=== PATIENT | male | born 1945 | race Caucasian/White ===

== ENCOUNTER → 2018-05-16 | Outpatient (CLI) | payer MEDICARE, OTHER ==
[~2018-05-16] MED LIST: ALPR1 PO; ASPI81EC PO; EPOE20I SQ; HYDACE5 PO; LEVSOD75 PO; Percocet 5-3251 EACH PO; RANI150 PO; [UNRECOGNIZED DRUG - OTHER]
[2018-05-16 13:24] LABS: BASOPHILS ABSOLUTE AUTO 0.19 K/mm3 (0.00-0.23); BASOPHILS PERCENT AUTO 4 % (0-2); EOSINOPHILS ABSOLUTE AUTO 0.17 K/mm3 (0.00-0.68); EOSINOPHILS PERCENT AUTO 3 % (0-6); Hematocrit 27.6 % (37.0-53.0); Hemoglobin 8.9 g/dL (13.5-17.5); IMMATURE GRAN ABSOLUTE AUTO 0.03 K/mm3 (0.00-0.10); IMMATURE GRAN PERCENT AUTO 1 % (0-1); LYMPHOCYTES ABSOLUTE AUTO 2.22 K/mm3 (0.84-5.20); LYMPHOCYTES PERCENT AUTO 42 % (21-46); MONOCYTES ABSOLUTE AUTO 0.65 K/mm3 (0.16-1.47); MONOCYTES PERCENT AUTO 12 % (4-13); Mean Corpuscular HGB 33.1 pg (26.0-34.0); Mean Corpuscular HGB Conc 32.2 g/dL (31.5-36.5); Mean Corpuscular Volume 103 fL (80-100); Mean Platelet Volume 9.7 fL (9.1-12.4); NEUTROPHILS ABSOLUTE AUTO 2.08 K/mm3 (1.96-9.15); NEUTROPHILS PERCENT AUTO 39 % (41-73); NRBC ABSOLUTE 0.09 K/mm3 (0.00-0.02); NRBC Auto 1.7 /100 WBC (0.0-0.2); Platelet Count 558 K/mm3 (150-400); RDW Coefficient Variation 31.2 % (11.7-14.2); RDW Standard Deviation 114.4 fL (35.1-46.3); Red Blood Cell Count 2.69 M/mm3 (4.30-5.90); White Blood Cell Count 5.34 K/mm3 (4.00-11.30)
== END | disposition home or self-care (01) ==
LOC: LAB SHORT 09:07 → LAB 09:07
PROVIDERS: Internal Medicine Hematology & Oncology
DX: C94.6 Myelodysplastic disease, not elsewhere classified (principal)
CPT/HCPCS: 85025

== ENCOUNTER → 2018-11-28 | Outpatient (CLI) | payer MEDICARE, OTHER ==
[2018-11-28 12:24] LABS: Alanine Aminotransfer (ALT/SGP 32 U/L (12-78); Albumin/Globulin Ratio 1.5 (0.8-1.8); Alk Phos 74 U/L (50-136); Anion Gap 5 mmol/L (6-16); Aspartate Aminotrans (AST/SGOT 18 U/L (12-37); Blood Urea Nitrogen 18 mg/dL (8-24); Bun/Creatinine Ratio 18.3 (12.0-20.0); CHOL/HDL RATIO 2.3; CO2, Blood 27 mmol/L (21-32); Calcium, Blood 8.6 mg/dL (8.5-10.1); Chloride, Blood 107 mmol/L (98-108); Cholesterol 129 mg/dL (50-200); Creatinine, Blood 0.98 mg/dL (0.60-1.20); Globulin, Blood 2.7 g/dL (2.2-4.0); Glomerular Filtration Rate >60 (60-); Glucose, Blood 101 mg/dL (70-99); HDL Cholesterol 56 mg/dL (>39); LDL/HDL RATIO 1.1; Low Density Lipoprotein Chol 64 mg/dL (0-110); Potassium, Blood 4.7 mmol/L (3.5-5.5); Sodium, Blood 139 mmol/L (136-145); Total Protein, Blood 6.7 g/dL (6.4-8.2); Triglycerides 45 mg/dL (30-160); Very Low Density Lipoprot Chol 9 mg/dL (6-32)
== END | disposition home or self-care (01) ==
LOC: LAB SHORT 10:00 → LAB 10:00
PROVIDERS: Internal Medicine Hematology & Oncology
DX: D47.3 Essential (hemorrhagic) thrombocythemia (principal); D46.9 Myelodysplastic syndrome, unspecified; E03.9 Hypothyroidism, unspecified; Z12.5 Encounter for screening for malignant neoplasm of prostate
CPT/HCPCS: 36415; 80053; 80061; 84439; 84443; G0103

== ENCOUNTER → 2020-09-09 | Outpatient (CLI) | payer MEDICARE, OTHER ==
[2020-09-09 15:01] LABS: Alanine Aminotransfer (ALT/SGP 42 U/L (12-78); Albumin, Blood 4.1 g/dL (3.4-5.0); Albumin/Globulin Ratio 1.5 (0.8-1.8); Alk Phos 76 U/L (50-136); Anion Gap 6 mmol/L (6-16); Aspartate Aminotrans (AST/SGOT 22 U/L (12-37); Bilirubin, Total 0.9 mg/dL (0.1-1.0); Blood Urea Nitrogen 19 mg/dL (8-24); Bun/Creatinine Ratio 16.4 (12.0-20.0); CHOL/HDL RATIO 2.3; CO2, Blood 27 mmol/L (21-32); Calcium, Blood 8.3 mg/dL (8.5-10.1); Chloride, Blood 106 mmol/L (98-108); Cholesterol 136 mg/dL (50-200); Creatinine, Blood 1.16 mg/dL (0.60-1.20); Globulin, Blood 2.8 g/dL (2.2-4.0); Glomerular Filtration Rate >60 (60-); Glucose, Blood 99 mg/dL (70-99); HDL Cholesterol 58 mg/dL (>39); LDL/HDL RATIO 1.2; Low Density Lipoprotein Chol 70 mg/dL (0-110); Phosphorus, Blood 3.3 mg/dL (2.5-4.9); Potassium, Blood 4.7 mmol/L (3.5-5.5); Sodium, Blood 139 mmol/L (136-145); Thyroxine (T4) 8.7 ug/dL (4.5-12.1); Total Protein, Blood 6.9 g/dL (6.4-8.2); Triglycerides 41 mg/dL (30-160); Very Low Density Lipoprot Chol 8 mg/dL (6-32)
== END | disposition home or self-care (01) ==
LOC: LAB 09:30 → LAB SHORT 09:30
PROVIDERS: Internal Medicine Hematology & Oncology
DX: E03.9 Hypothyroidism, unspecified (principal); E78.49 Other hyperlipidemia; D46.9 Myelodysplastic syndrome, unspecified
CPT/HCPCS: 80053; 80061; 84100; 84436; 84443

== ENCOUNTER → 2021-06-09 | Outpatient (CLI) | payer MEDICARE, OTHER ==
[2021-06-09 16:39] LABS: BASOPHILS ABSOLUTE AUTO 0.21 K/mm3 (0.00-0.23); BASOPHILS PERCENT AUTO 4 % (0-2); EOSINOPHILS ABSOLUTE AUTO 0.18 K/mm3 (0.00-0.68); EOSINOPHILS PERCENT AUTO 3 % (0-6); IMMATURE GRAN ABSOLUTE AUTO 0.08 K/mm3 (0.00-0.10); IMMATURE GRAN PERCENT AUTO 2 % (0-1); LYMPHOCYTES ABSOLUTE AUTO 2.08 K/mm3 (0.84-5.20); LYMPHOCYTES PERCENT AUTO 38 % (21-46); MONOCYTES ABSOLUTE AUTO 0.56 K/mm3 (0.16-1.47); MONOCYTES PERCENT AUTO 10 % (4-13); Mean Platelet Volume 10.5 fL (9.1-12.4); NEUTROPHILS ABSOLUTE AUTO 2.39 K/mm3 (1.96-9.15); NEUTROPHILS PERCENT AUTO 43 % (41-73); NRBC ABSOLUTE 0.08 K/mm3 (0.00-0.02); NRBC Auto 1.5 /100 WBC (0.0-0.2); Platelet Count 560 K/mm3 (150-400)
[2021-06-09 17:08] LABS: Hematocrit 32.1 % (37.0-53.0); Mean Corpuscular HGB 30.9 pg (26.0-34.0); Mean Corpuscular HGB Conc 31.2 g/dL (31.5-36.5); Mean Corpuscular Volume 99 fL (80-100); RDW Coefficient Variation 31.6 % (11.7-14.2); RDW Standard Deviation 111.7 fL (35.1-46.3); Red Blood Cell Count 3.24 M/mm3 (4.30-5.90)
== END ==
LOC: LAB SHORT 15:24
PROVIDERS: Internal Medicine Hematology & Oncology
DX: D46.9 Myelodysplastic syndrome, unspecified (principal); D63.8 Anemia in other chronic diseases classified elsewhere
CPT/HCPCS: 85025

== ENCOUNTER 2021-08-15 12:14 | Day surgery (SDC) | payer MEDICARE, OTHER ==
[~2021-08-15] VITALS: Ht 175.3 cm; Wt 83.5 kg
--- NOTE | 2021-08-15 12:57 | NUR ---
08/15/21 1257 Jeana Escalante CALL LIGHT WITHIN REACH.
== END 2021-08-15 14:33 | disposition home or self-care (01) ==
LOC: ORSCSDS 12:14
PROVIDERS: Ophthalmology
PROC: 08RJ3JZ Replacement of Right Lens with Synthetic Substitute, Percutaneous Approach (ICD-10-PCS; principal; 2021-08-15 13:30)
DX: H25.13 Age-related nuclear cataract, bilateral (principal); K21.9 Gastro-esophageal reflux disease without esophagitis; F17.210 Nicotine dependence, cigarettes, uncomplicated; Z79.899 Other long term (current) drug therapy
CPT/HCPCS: J2001; J2250; J3010; J3301; J7040; V2632

== ENCOUNTER 2021-08-31 07:45 | Day surgery (SDC) | payer MEDICARE, OTHER ==
[~2021-08-31] VITALS: Ht 175.3 cm; Wt 82.8 kg
[~2021-08-31 07:45] MED LIST changes: +LEVSOD100 PO; -LEVSOD75 PO
--- NOTE | 2021-08-31 08:04 | NUR ---
08/31/21 0804 Jeana Escalante CALL LIGHT WITHIN REACH. TETRACAINE AT 0800 PLEDGETT AT 0803 IN THE LEFT EYE
== END 2021-08-31 09:26 | disposition home or self-care (01) ==
LOC: ORSCSDS 07:45
PROVIDERS: Ophthalmology
PROC: 08RK3JZ Replacement of Left Lens with Synthetic Substitute, Percutaneous Approach (ICD-10-PCS; principal; 2021-08-31 09:00)
DX: H25.12 Age-related nuclear cataract, left eye (principal); F41.9 Anxiety disorder, unspecified; J44.9 Chronic obstructive pulmonary disease, unspecified; E78.00 Pure hypercholesterolemia, unspecified; F17.210 Nicotine dependence, cigarettes, uncomplicated; Z79.899 Other long term (current) drug therapy
CPT/HCPCS: J2001; J2250; J3010; J3301; J7040; V2632

== ENCOUNTER 2022-02-13 02:50 | Emergency (ER) | payer MEDICARE, OTHER ==
[2022-02-13] MEDS ORDERED: AMOCLA875 PO (05:05)
== END 2022-02-13 05:19 | disposition home or self-care (01) ==
DX: R22.0 Localized swelling, mass and lump, head (principal); T36.4X5A Adverse effect of tetracyclines, initial encounter; R05.9 Cough, unspecified; H00.19 Chalazion unspecified eye, unspecified eyelid; J45.909 Unspecified asthma, uncomplicated; F17.200 Nicotine dependence, unspecified, uncomplicated; Z79.899 Other long term (current) drug therapy

== ENCOUNTER → 2022-04-06 | Outpatient (CLI) | payer MEDICARE, OTHER ==
[~2022-04-06] MED LIST changes: +AMOCLA875 PO
== END | disposition home or self-care (01) ==
LOC: LAB SHORT 08:55
PROVIDERS: Internal Medicine Hematology & Oncology
DX: Z12.5 Encounter for screening for malignant neoplasm of prostate (principal)
CPT/HCPCS: G0103

== ENCOUNTER → 2022-04-27 | Outpatient (CLI) | payer MEDICARE, OTHER ==
[2022-04-27 11:01] LABS: Albumin, Blood 3.8 g/dL (3.4-5.0); Albumin/Globulin Ratio 1.2 (0.8-1.8); Bilirubin, Total 0.9 mg/dL (0.1-1.0); Bun/Creatinine Ratio 16.1 (12.0-20.0); Calcium, Blood 8.5 mg/dL (8.5-10.1); Creatinine, Blood 0.87 mg/dL (0.60-1.20); Globulin, Blood 3.1 g/dL (2.2-4.0); Phosphorus, Blood 3.5 mg/dL (2.5-4.9); Potassium, Blood 5.1 mmol/L (3.5-5.5); Total Protein, Blood 6.9 g/dL (6.4-8.2)
[2022-04-27 17:32] LABS: Hemoglobin 10.5 g/dL (13.5-17.5); Mean Platelet Volume 10.4 fL (9.1-12.4); NRBC ABSOLUTE 0.04 K/mm3 (0.00-0.02); NRBC Auto 0.9 /100 WBC (0.0-0.2); Platelet Count 489 K/mm3 (150-400); White Blood Cell Count 4.69 K/mm3 (4.00-11.30)
[2022-04-27 17:38] LABS: Mean Corpuscular HGB 30.4 pg (26.0-34.0); Mean Corpuscular HGB Conc 32.8 g/dL (31.5-36.5); Mean Corpuscular Volume 93 fL (80-100); RDW Coefficient Variation 30.9 % (11.7-14.2); RDW Standard Deviation 100.5 fL (35.1-46.3); Red Blood Cell Count 3.45 M/mm3 (4.30-5.90)
[2022-04-27 17:45] LABS: Uric Acid, Blood 6.7 mg/dL (3.5-7.2)
[2022-04-27 17:46] LABS: International Normalized Ratio 1.03; Prothrombin Time Results 10.8 Sec (9.7-11.5)
[2022-04-27 18:00] LABS: BAND PERCENT MAN 4 % (0-8); BASOPHILS ABSOLUTE MAN 0.23 K/mm3 (0.00-0.23); BASOPHILS PERCENT MAN 5 % (0-2); EOSINOPHILS PERCENT MAN 0 % (0-6); LYMPHOCYTES % ATYPICAL MANUAL 2 % (0-0); LYMPHOCYTES ABSOLUTE MAN 1.87 K/mm3 (0.84-5.20); LYMPHOCYTES PERCENT MAN 38 % (21-46); MONOCYTES ABSOLUTE MAN 0.37 K/mm3 (0.16-1.47); MONOCYTES PERCENT MAN 8 % (4-13); SEG NEUTROPHILS PERCENT MAN 43 % (41-73); TOTAL CELLS COUNTED 100
[2022-04-28 08:11] LABS: CERULOPLASMIN 18.2 mg/dL (16.0-31.0); IMMUNOGLOBULIN A, QN, SERUM 121 mg/dL (61-437); IMMUNOGLOBULIN G, QN, SERUM 1166 mg/dL (603-1613); IMMUNOGLOBULIN M, QN, SERUM 63 mg/dL (15-143); TRANSFERRIN 178 mg/dL (177-329)
[2022-04-28 09:11] LABS: HEP A AB, IGM Negative (Negative); HEP B SURFACE AB Non Reactive (.)
[2022-04-30 11:08] LABS: HBSAG SCREEN Negative (Negative); HCV AB <0.1 (0.0-0.9); HEP A AB, IGM Negative (Negative); HEP B CORE AB, IGM Negative (Negative)
== END | disposition home or self-care (01) ==
LOC: LAB SHORT 09:20
PROVIDERS: Internal Medicine Hematology & Oncology
DX: C22.9 Malignant neoplasm of liver, not specified as primary or secondary (principal); D46.9 Myelodysplastic syndrome, unspecified; K76.3 Infarction of liver; E53.8 Deficiency of other specified B group vitamins; R27.0 Ataxia, unspecified; R05.9 Cough, unspecified; R68.89 Other general symptoms and signs; R16.0 Hepatomegaly, not elsewhere classified
CPT/HCPCS: 80053; 80074; 82105; 82390; 82607; 82728; 82746; 82977; 83615; 84100; 84550; 85025; 85610; 85651

== ENCOUNTER → 2022-04-30 | Outpatient (CLI) | payer MEDICARE, OTHER | END | disposition home or self-care (01) | LOC: LAB SHORT 09:56 | DX: R27.0 Ataxia, unspecified (principal); R05.9 Cough, unspecified; R68.89 Other general symptoms and signs; D46.9 Myelodysplastic syndrome, unspecified; K76.3 Infarction of liver; E53.8 Deficiency of other specified B group vitamins | CPT/HCPCS: 82103 ==

== ENCOUNTER → 2022-05-25 | Outpatient (CLI) | payer MEDICARE, OTHER ==
[2022-05-25 12:56] LABS: Albumin, Blood 4.1 g/dL (3.4-5.0); Albumin/Globulin Ratio 1.3 (0.8-1.8); Bilirubin, Total 0.8 mg/dL (0.1-1.0); Bun/Creatinine Ratio 19.4 (12.0-20.0); Calcium, Blood 8.8 mg/dL (8.5-10.1); Creatinine, Blood 0.93 mg/dL (0.60-1.20); Globulin, Blood 3.2 g/dL (2.2-4.0); Phosphorus, Blood 3.5 mg/dL (2.5-4.9); Potassium, Blood 4.6 mmol/L (3.5-5.5); Total Protein, Blood 7.3 g/dL (6.4-8.2)
== END | disposition home or self-care (01) ==
LOC: LAB 10:16 → LAB SHORT 10:16
PROVIDERS: Internal Medicine Hematology & Oncology
DX: D46.9 Myelodysplastic syndrome, unspecified (principal)
CPT/HCPCS: 80053; 84100

== ENCOUNTER → 2022-06-22 | Outpatient (CLI) | payer MEDICARE, OTHER ==
[2022-06-22 13:45] LABS: Albumin, Blood 4.1 g/dL (3.4-5.0); Albumin/Globulin Ratio 1.4 (0.8-1.8); Bilirubin, Total 0.8 mg/dL (0.1-1.0); Bun/Creatinine Ratio 17.2 (12.0-20.0); Calcium, Blood 8.9 mg/dL (8.5-10.1); Creatinine, Blood 0.93 mg/dL (0.60-1.20); Phosphorus, Blood 3.1 mg/dL (2.5-4.9); Potassium, Blood 4.5 mmol/L (3.5-5.5); Total Protein, Blood 7.1 g/dL (6.4-8.2)
[2022-06-23 08:10] LABS: COMPLEMENT C3, SERUM 98 mg/dL (82-167); COMPLEMENT C4, SERUM 24 mg/dL (12-38)
[2022-06-25 08:08] LABS: LYME TOTAL ANTIBODY CIA Negative (Negative)
== END | disposition home or self-care (01) ==
LOC: LAB SHORT 12:18
PROVIDERS: Internal Medicine Hematology & Oncology
DX: D46.9 Myelodysplastic syndrome, unspecified (principal); G45.9 Transient cerebral ischemic attack, unspecified; R23.1 Pallor
CPT/HCPCS: 80053; 84100; 86038; 86160; 86618

== ENCOUNTER 2022-07-15 10:14 | Inpatient (IN) | payer OTHER, MEDICARE ==
[~2022-07-15] VITALS: Ht 175.3 cm; Wt 81.2 kg
[2022-07-15 11:03] LABS: Hemoglobin 7.6 g/dL (13.5-17.5); Mean Platelet Volume 10.4 fL (9.1-12.4); NRBC ABSOLUTE 0.08 K/mm3 (0.00-0.02); NRBC Auto 1.4 /100 WBC (0.0-0.2); Platelet Count 482 K/mm3 (150-400)
[2022-07-15 11:07] LABS: Hematocrit 23.9 % (37.0-53.0); Mean Corpuscular HGB Conc 31.8 g/dL (31.5-36.5); Mean Corpuscular Volume 95 fL (80-100); RDW Coefficient Variation 30.9 % (11.7-14.2); RDW Standard Deviation 104.6 fL (35.1-46.3); Red Blood Cell Count 2.53 M/mm3 (4.30-5.90)
[2022-07-15 11:14] LABS: Alanine Aminotransfer (ALT/SGP 37 U/L (12-78); Albumin, Blood 3.6 g/dL (3.4-5.0); Albumin/Globulin Ratio 1.3 (0.8-1.8); Alk Phos 66 U/L (50-136); Anion Gap 6 mmol/L (6-16); Aspartate Aminotrans (AST/SGOT 26 U/L (12-37); Bilirubin, Total 0.9 mg/dL (0.1-1.0); Blood Urea Nitrogen 19 mg/dL (8-24); Bun/Creatinine Ratio 17.8 (12.0-20.0); CO2, Blood 24 mmol/L (21-32); Chloride, Blood 111 mmol/L (98-108); Creatinine, Blood 1.07 mg/dL (0.60-1.20); Ethanol (Alcohol), Blood, Med <3 mg/dL; Globulin, Blood 2.7 g/dL (2.2-4.0); Glomerular Filtration Rate 71 (60-); Glucose, Blood 127 mg/dL (70-99); Magnesium, Blood 1.8 mg/dL (1.6-2.4); Potassium, Blood 3.9 mmol/L (3.5-5.5); Sodium, Blood 141 mmol/L (136-145); Total Protein, Blood 6.3 g/dL (6.4-8.2)
[2022-07-15 11:52] LABS: BAND PERCENT MAN 5 % (0-8); BASOPHILS ABSOLUTE MAN 0.05 K/mm3 (0.00-0.23); BASOPHILS PERCENT MAN 1 % (0-2); EOSINOPHILS ABSOLUTE MAN 0.29 K/mm3 (0.00-0.68); EOSINOPHILS PERCENT MAN 5 % (0-6); LYMPHOCYTES ABSOLUTE MAN 0.58 K/mm3 (0.84-5.20); LYMPHOCYTES PERCENT MAN 10 % (21-46); MONOCYTES ABSOLUTE MAN 0.29 K/mm3 (0.16-1.47); MONOCYTES PERCENT MAN 5 % (4-13); NEUTROPHILS ABSOLUTE MAN 4.58 K/mm3 (1.96-9.15); SEG NEUTROPHILS PERCENT MAN 74 % (41-73); TOTAL CELLS COUNTED 100
[2022-07-15 14:57] VITALS: BP 123/71
--- NOTE | 2022-07-15 15:00 | NUR ---
PT ARRIVED TO THE ROOM AT APPROXIMATELY 1455. PT IN CORROPLAST TRACTION FROM ER. DR. CORTES PRESENT AND PROVIDED ORDER FOR 5LBS BUCKS TRACTION, COROPLAST TRACTION REMOVED AFTER PT WAS MEDICATED FOR PAIN. PT HAS SIGNIFICANT SWELLING TO RIGHT THIGH BUT IT REMAINS SOFT. PEDAL AND TIBIAL PULSES PRESENT AND PALPABLE TO BLE. PT ABLE TO WIGGLE TOES. MORPHINE FOR PAIN.
[2022-07-15] MEDS ORDERED: PLAVIX75 MG PO (16:18)
[2022-07-15 19:41] VITALS: BP 148/80
--- NOTE | 2022-07-15 19:56 | NUR ---
SHIFT SUMMARY PAIN MANAGED MORPHINE AND OXYCODONE SINCE ARRIVAL TO THE ROOM. PLAN FOR SURGERY TOMORROW. PT DOES NOT TOLERATE REPOSITIONING. PT DECLINED DINNER. NO CHANGES TO RLE SWELLING SINCE ADMIT. REPORT GIVEN TO ALEXYS PAN.
[2022-07-16] VITALS (20 sets, daily range): BP systolic 113–161; BP diastolic 54–98
--- NOTE | 2022-07-16 06:36 | NUR ---
PT VSS T/O NIGHT. RIGHT THIGH REMAINS SWOLLEN-NO SIGNIFICANT CHANGES FROM ORIGINAL ASSESSMENT. 5# BUCKS TX IN PLACE. PULSE AND CAP REFILL WNL, PT DENIED N/T. PAIN MGD PER EMAR. PT ONLY ALLPWING MINIMAL REPOSITIONING R/T PAIN. STRAIGHT CATH DONE X1 R/T RETENTION. PT NPO POST MIDNIGHT FOR PLAN FOR OR TODAY. IVF CONT PER ORDERS. PT A/O, IS USING CALL LIGHT FOR ASSISTANCE.
[2022-07-16 06:43] LABS: Hemoglobin 7.7 g/dL (13.5-17.5); Mean Platelet Volume 10.3 fL (9.1-12.4); NRBC ABSOLUTE 0.14 K/mm3 (0.00-0.02); NRBC Auto 1.8 /100 WBC (0.0-0.2); Platelet Count 481 K/mm3 (150-400); White Blood Cell Count 7.69 K/mm3 (4.00-11.30)
[2022-07-16 06:56] LABS: Bun/Creatinine Ratio 17.9 (12.0-20.0); Calcium, Blood 8.3 mg/dL (8.5-10.1); Creatinine, Blood 0.95 mg/dL (0.60-1.20); Potassium, Blood 4.3 mmol/L (3.5-5.5)
[2022-07-16 07:06] LABS: Hematocrit 24.4 % (37.0-53.0); Mean Corpuscular HGB 30.2 pg (26.0-34.0); Mean Corpuscular HGB Conc 31.6 g/dL (31.5-36.5); Mean Corpuscular Volume 96 fL (80-100); RDW Coefficient Variation 31.5 % (11.7-14.2); RDW Standard Deviation 107.3 fL (35.1-46.3); Red Blood Cell Count 2.55 M/mm3 (4.30-5.90)
--- NOTE | 2022-07-16 12:02 | NUR ---
PT TO OR FOR SURGERY
--- NOTE | 2022-07-16 12:30 | NUR ---
INTO [facility] VIA BED. BUCKS TRACTION REMOVED FROM [facility] FOR TRANSPORT. PT REPORTS 6/10 RIGHT LOWER EXTREMITY PAIN AND MODERATE TO SEVERE ANXIETY. PT COOPERATIVE WITH CARE. LUNGS DIMINISHED IN THE BASES. SAT>90% ON R/A. PT HAS OCCASIONAL COUGH PRODUCTIVE OF SMALL AMOUNT OF THICK, STICKY, YELLOW TINGED SPUTUM. PT STATES THAT THIS IS NORMAL SINCE HE QUIT SMOKING. ALSO, PT REPORTS DIFFICULTY SWALLOWING SINCE HIS CVA 04/09. PT REQUEST THAT RN ASK DR. CORTES ABOUT WHETHER OR NOT BLOOD TRANSFUSION TO BE GIVEN. HGN-7.7 PT DAUGHTER TRAVIS AT BEDSIDE-HER CONTACT INFO HAS BEEN PLACED ON THE CHART.
--- NOTE | 2022-07-16 14:33 | NUR ---
07/16/22 1432 Eugene Don I THIS RN NOTED A RASH TO THE RIGHT UPPER CHEST WALL THAT WAS PRESENT ON ARRIVAL TO THE OR. DR. ROWE WAS NOTIFIED. PT STATED THAT THE RASH HAS BEEN PRESENT "FOR ABOUT A YEAR."
--- NOTE | 2022-07-16 17:22 | NUR ---
ARRIVAL TO UNIT PT CAME ON BED FROM PACU. PT ON 3L NC, TOLERATING WELL. 3 INCSIONS TO R HIP WITH AQUACELL DRESSINGS, C/D/I. PULSES STRONG IN R FOOT, ABLE TO WIGGLE TOES. TRYING TO VOID. PT HAVING LOTS OF MUCUS, USING SUCTION TO GET MUCUS OUT. PT REPORTS NO PAIN AT THIS TIME.
--- NOTE | 2022-07-16 18:10 | NUR ---
SHIFT SUMMARY POD 0 R GAMMA NAILING 3 INCISIONS, 2 ON R HIP, 1 ON R KNEE, ALL COVERED WITH AQUALCELL DRESSINGS, C/D/I. PT WENT TO IMAGING AT 1530 CAME BACK AT 1800. TOLERATED MOVING FROM BED TO RNEY WELL. MEDICATED PER EMAR FOR PAIN. PT ON 3L NC.
[2022-07-17 00:53] VITALS: BP 120/76
[2022-07-17 03:58] VITALS: BP 118/73
[2022-07-17 04:07] LABS: Hemoglobin 7.4 g/dL (13.5-17.5); Mean Corpuscular HGB 30.3 pg (26.0-34.0); Mean Corpuscular HGB Conc 32.2 g/dL (31.5-36.5); Mean Corpuscular Volume 94 fL (80-100); Mean Platelet Volume 10.3 fL (9.1-12.4); NRBC ABSOLUTE 0.13 K/mm3 (0.00-0.02); NRBC Auto 2.1 /100 WBC (0.0-0.2); Platelet Count 344 K/mm3 (150-400); RDW Standard Deviation 97.2 fL (35.1-46.3); Red Blood Cell Count 2.44 M/mm3 (4.30-5.90); White Blood Cell Count 6.06 K/mm3 (4.00-11.30)
[2022-07-17 04:22] LABS: Hematocrit 23.1 % (37.0-53.0)
[2022-07-17 07:15] VITALS: BP 123/74
--- NOTE | 2022-07-17 07:33 | NUR ---
POD S/P RIGHT HIP NAILING. PT VSS T/O NIGHT. DRESSING CDI, SWELLING MUCH IMPROVED POST OP. PULSES AND CAP REFILL WNL, PT DENIED N/T. PAIN MGD W/TYLENOL AND MG OXYCODONE W/REP RELIEF. PT TAKES MEDS W/APPLESAUCE, DOES WELL W/APPLESAUCE, BUT REP SWALLOWING DIFFICULTY W/WATER AND OTHER TEXTURES. ST EVAL ORDERED, PT NPO PENDING EVAL. IVF CONT PER ORDERS. PT IS VOIDING URINE W/O DIFFICULTY. PT REPOSITIONING SELF IN BED. PLAN TO MOBILIZE W/PT.
[2022-07-17 15:32] VITALS: BP 103/65
--- NOTE | 2022-07-17 17:22 | NUR ---
SHIFT SUMMARY POD 1 GAMMA NAIL R HIP PT PAIN WELL CONTROLLED TODAY. MEDICATED PER EMAR. HE WORKED WITH THERAPY. AMBULATED IN ROOM, UP TO CHAIR FOR MOST OF SHIFT. CONTINUES TO HAVE DIFFICULTY SWALLOWING, SPEECH THERAPY EVAL TODAY. DR. LILLY CONSTULTED FOR SWALLOWING ISSUES. PT AWARE OF PLAN WITH GI AND AGREEABLE. PLAN IS TO CONTINUE MOBILIZING PATIENT.
[2022-07-17 19:27] VITALS: BP 97/72
[2022-07-18 00:47] VITALS: BP 111/74
[2022-07-18 04:23] LABS: Hematocrit 22.3 % (37.0-53.0); Hemoglobin 7.2 g/dL (13.5-17.5); Mean Corpuscular HGB 30.4 pg (26.0-34.0); Mean Corpuscular HGB Conc 32.3 g/dL (31.5-36.5); Mean Corpuscular Volume 94 fL (80-100); Mean Platelet Volume 11.4 fL (9.1-12.4); NRBC ABSOLUTE 0.11 K/mm3 (0.00-0.02); NRBC Auto 1.7 /100 WBC (0.0-0.2); Platelet Count 297 K/mm3 (150-400); RDW Standard Deviation 98.1 fL (35.1-46.3); Red Blood Cell Count 2.37 M/mm3 (4.30-5.90); White Blood Cell Count 6.43 K/mm3 (4.00-11.30)
--- NOTE | 2022-07-18 04:40 | NUR ---
SHIFT SUMMARY VITALS STABLE, UP TO CHAIR T/O EVENING, 1 ASSIST W/ FWW TO TRANSFER TO BED. PAIN 07/25, MEDICATED X1. SLEPT WELL T/O NIGHT. 02 DECREASED TO 1L NC ON PREVIOUS SHIFT. CONT USE OF SCD'S. NPO FOR BARRIUM SWALLOW TODAY. PLANS FOR ESOPHAGEAL DILATION ON SATURDAY.
[2022-07-18 04:47] VITALS: BP 111/69
--- NOTE | 2022-07-18 06:31 | NUR ---
THIS RN REVIEWED ADN AGREES W/DOCUMENTATION OF BRADLEY TRAN RN.
[2022-07-18 06:52] VITALS: BP 116/68
[2022-07-18 15:12] VITALS: BP 109/63
--- NOTE | 2022-07-18 15:35 | NUR ---
SHIFT SUMMARY: POD 2 RIGHT HIP NAILING PATIENT IS A&OX4. VS ARE WNL AND IS ON RA WHILE AWAKE BUT ON 1L NC WHEN ASLEEP. WHILE ON RA PATIENT IS >90% OXYGEN SATS WITH CONTINUOUS BIOX ON. OTHERWISE VS ARE WNL. PAIN IS MANAGED WITH 2 OXY PO. HIS RIGHT HIP HAS AN AQUACEL THAT IS C/D/I. DENIES NUMBNESS OR TINGLING AND CAN MOVE ALL FINGERS AND TOES WHEN ASKED. HE IS TOLERATING PO INTAKE AND IS VOIDING. PATIENT WAS EDUCATED ON STOOL SOFTENERS AND PATIENT STATED "I WANT TO WAIT UNTIL AFTER MY TEST TO HAVE THEM". PATIENT HAD HIS BARIUM SWALLOW TEST DONE TODAY. PATIENT IS A SBA WITH FWW AND GAIT BELT. HE CALLS APPROPRIATELY. PATIENT WAS SITTING UP IN A CHAIR FOR MOST OF THE SHIFT BUT IS BACK IN BED WITH CALL LIGHT IN REACH. THE PLAN IS TO HAVE AN ESOPHAGEAL DIALATION DONE ON SATURDAY SINCE THAT WILL BE DAY 5 SINCE HAVING PO PLAVIX. THEN AFTER THAT DEPENDING ON PHYSICAL THERAPY'S RECOMMENDATION WILL EITHER DISCHARGE TO A SNF OR HOME WITH HOME HEALTH.
[2022-07-18 16:30] VITALS: BP 119/66
[2022-07-18 19:51] VITALS: BP 115/76
--- NOTE | 2022-07-18 23:34 | NUR ---
REPORT GIVEN TO BOY PAN TO ASSUME CARE OF PT AT THIS TIME. PT RESTING IN BED, DENIES NEEDS.
[2022-07-19] VITALS (8 sets, daily range): BP systolic 105–112; BP diastolic 58–73
--- NOTE | 2022-07-19 01:57 | NUR ---
ASSUMED CARE OF PT 2330.PT WAS SLEEPING.AT 0130 I NOTED PT SLOUCHED DOWN IN BED AND R FOOT WAS SLIGHTLY TURNING IN. I OFFERED TO REPOSITION PT AND ADVISED OF IMPORTANCE KEEPING R FOOT STRAIGHT WITH PILLOW BETWEEN KNEES IF NEEDED.OFFERED ANY OTHER CARE PT NEEDED. REFILLED ICE TO R HIP.PT USING HIS GAIT BELT DOWN LEG WRAPPED AROUND FOOT PAD TO STRAIGHTEN/REPOSITION FOOT.PT REFUSING ALL CARE. STATED HE JUST WANTED TO F"ING SLEEP.STATED HE HAD NOT SLEPT IN "1 WEEK" AFTER ENSURING PT HAD YANKAUER SX IN HAND AND CALL LIGHT IN HAND,URINAL ON TABLE WITHIN REACH. PT APPEARED IN NO PHYSICAL DISTRESS,I ASKED HIM TO CALL FOR ANY NEEDS AND LEFT ROOM.
--- NOTE | 2022-07-19 03:37 | NUR ---
LABS DRAWN.PT AWAKE. COOPERATIVE WITH LAB.
[2022-07-19 03:50] LABS: Hematocrit 20.4 % (37.0-53.0); Hemoglobin 6.5 g/dL (13.5-17.5)
[2022-07-19 05:47] LABS: Bun/Creatinine Ratio 20.3 (12.0-20.0); Calcium, Blood 7.9 mg/dL (8.5-10.1); Creatinine, Blood 0.89 mg/dL (0.60-1.20); Potassium, Blood 3.6 mmol/L (3.5-5.5)
--- NOTE | 2022-07-19 06:09 | NUR ---
PT WITH C/O NEW ONSET BLURRY VISION. REPORTS WEARING READING GLASSES. BUT STATES HAS BEEN ABLE TO SEE TV AND WHITE BOARD CLEARLY UNTIL NOW.PT DID ALLOW ME TO TAKE HIS VS WHICH ARE STABLE.PT WITH PREVIOUS CVA AND R SIDED WEAKNESS WHICH PT REPORTS UNCHANGED FROM PRIOR AND NO CHANGES FROM PT BASELINE PER PT REPORT.PT ALSO THEN C/O L EYE LID BEING "STUCK" CLOSED WHEN HE WOKE.OLGA,NO DISCHARGE NOTED.GAVE PT WARM WASH CLOTH FOR EYES PER HIS REQUEST.ASKED PT IF BLURRY VISION IS IMPROVING, BUT PT ANSWERS "I DONT KNOW".I CALLED OUT TO DR KIM AND ADVISED OF ABOVE. INSTRUCTED ME TO MONITOR WITH NO CHANGE OF ORDERS AT THIS TIME.
--- NOTE | 2022-07-19 07:17 | NUR ---
PT REPORTS NO IMPROVEMENT OR DECLINE IN BLURRY VISION.
--- NOTE | 2022-07-19 16:53 | NUR ---
RECEIVED 1 UNIT OF RBC. PT SITTING UP IN CHAIR POST TRANSFUSION. MEDICATED WITH TYLENOL FOR HEADACHE WITH LESSENING OF HEADACHE. NO CHANGES IN NEURO/NEUROVASCULAR. PT ENRIQUE MECH SOFT DIET AND PILLS WITH APPLESAUCE WITH NO COUGHING OR CHOKING. HIP DRESSING INTACT WITH SCANT DRIED DRAINAGE. PT REPORTS MINIMAL HIP PAIN.
[2022-07-20 04:21] LABS: Hematocrit 23.2 % (37.0-53.0); Hemoglobin 7.6 g/dL (13.5-17.5); Mean Corpuscular HGB 30.6 pg (26.0-34.0); Mean Corpuscular HGB Conc 32.8 g/dL (31.5-36.5); Mean Corpuscular Volume 94 fL (80-100); Mean Platelet Volume 10.7 fL (9.1-12.4); NRBC Auto 2.4 /100 WBC (0.0-0.2); Platelet Count 255 K/mm3 (150-400); RDW Coefficient Variation 26.4 % (11.7-14.2); RDW Standard Deviation 89.9 fL (35.1-46.3); Red Blood Cell Count 2.48 M/mm3 (4.30-5.90); White Blood Cell Count 4.24 K/mm3 (4.00-11.30)
--- NOTE | 2022-07-20 05:03 | NUR ---
SHIFT SUMMARY POD4 RIGHT HIP NAILING. SENSATION AND CIRCULATION REMAINS INTACT. VSS. PT SLEPT ON AND OFF T/O THE NIGHT. TOLLERATING PO INTAKE, PT ENCOURAGED T/O THE NIGHT TO INCREASE ORAL FLUIDS. LOW URINE OUTPUT NOTED. PT C/O CONSTIPATION BUT PASSING FLATTUS, MEDICATED PER EMAR WITH BOWEL CARE. PT WAS ABLE TO TITRATE OFF OF O2 FOR 2 HOURS BUT WHEN HE STARTED LEG EXERCISES IN BED, HE REQUIRED 2L VIA NC. NO ACUTE EVENTS NOTED. PLAN FOR PT TO HAVE ESOPHAGEAL DILATION ON SATURDAY, HOLD LOVENOX THIS DAY. THE PATIENT IS CURRENTLY RESTING, IN NO DISTRESS, CALL LIGHT IN REACH.
[2022-07-20 05:22] VITALS: BP 132/59
--- NOTE | 2022-07-20 07:15 | NUR ---
Patient consent statement. 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
[2022-07-20 07:19] VITALS: BP 105/66
[2022-07-20 14:39] VITALS: BP 97/67
--- NOTE | 2022-07-20 16:00 | NUR ---
PATIENT AND BELONGINGS TRANSPORTED VIA HOSPITAL BED FROM ROOM 213 TO ROOM 229. ORIENTED TO NEW ROOM AND CALL LIGHT WITHIN REACH.
--- NOTE | 2022-07-20 18:38 | NUR ---
END OF SHIFT SUMMARY. MODERATE SEROSANGUINEOUS DRAINAGE PRESENT ON AQUACEL. MEDICATED WITH OXYCODONE X1 FOR 5/10 RIGHT HIP PAIN WITH FAIR RELIEF. PT ON CONTINUOUS BIOX MONITORING AND SATS ABOVE 90% ON 1 L VIA N/C.
[2022-07-20 21:31] VITALS: BP 127/68
[2022-07-21] VITALS (24 sets, daily range): BP systolic 80–141; BP diastolic 46–93
--- NOTE | 2022-07-21 04:58 | NUR ---
SHIFT SUMMARY AOX4. FOLLOWS DIRECTIONS & ANSWERS QUESTIONS. SLOW TO RESPOND @TIMES. HX CVA. POD 5-R GAMMA NAIL PINNING. AQUACEL DRESSING CHANGED / DAY SHIFT, C/D/I. REPORTS 08/25 PAIN & ANXIETY @HS. HOWEVER PT STATED ANXIETY WAS WORSE THEN PAIN & ASKED TO WAIT A FEW HOURS AFTER XANAX BEFORE GIVING PAIN MED & THEN PT DENIED ANY PAIN & STATED HE WAS COMFORTABLE. UP 1 ASSIST c GB & FWW TO RESTROOM, NO BM THIS SHIFT. PASSING GAS. BOWEL CARE MEDS GIVEN. WILL BE NPO AFTER 0600 FOR EGD TODAY. DENIES N/V OR DYSPNEA. CALL LIGHT IN REACH.
[2022-07-21 05:41] LABS: Hematocrit 23.4 % (37.0-53.0); Hemoglobin 7.5 g/dL (13.5-17.5)
--- NOTE | 2022-07-21 12:39 | NUR ---
07/21/22 1239 Kathy Centeno HISTORY, CHART, MEDICATIONS AND ALLERGIES REVIEWED BEFORE START OF PROCEDURE. PATIENT CONFIRMS NPO STATUS AND AGREES WITH SCHEDULED PROCEDURE. 3-LEAD EKG REVIEWED WITH PHYSICIAN PRIOR TO START OF PROCEDURE. MONITOR INTACT WITH CONTINUOUS PULSE OXIMETRY,CAPNOGRAPHY, 3-LEAD EKG, INTERMITTENT BP. SUPPLEMENTAL O2 TO BE TITRATED THROUGHOUT PROCEDURE TO MAINTAIN O2 SATURATION ABOVE 90%. PATIENT DETERMINED TO BE ASA APPROPRIATE FOR PROPOFOL SEDATION PRIOR TO START OF PROCEDURE BY DR. LILLY.
--- NOTE | 2022-07-21 13:38 | NUR ---
UPDATE PT LEFT FOR EGD PROCEDURE AT 1100. PT ARRAIVED BACK TO UNIT AT 1330. PT ABLE TO TRANSFER FROM RLEIVASY TO BED WITH MINIMAL ASST. PT STATES "STILL DIZZY FROM THE DRUGS." PT HAS NO COMPLAINTS OF PAIN AT THIS TIME. PT NOW WORKING WITH PHYSICAL THERAPY.
--- NOTE | 2022-07-21 16:05 | NUR ---
SHIFT SUMMARY POD0 EGD, DIET ADVANCED PER GI, POD5 R GAMMA NAIL, AQUACELL DRESSINGS DRY AND INTACT, PT ABLE TO STAND TRANSFER WHEN HE CAME BACK FROM HIS EGD, HE DID THIS SLOWLY BUT SMOOTHLY WITH NO ISSUES OR COMPLAINTS, HE DID REPORT SOME SORENESS IN HIS R HIP WHILE HE WAS STANDING. NO OTHER EVENTS THIS SHIFT, CALL LIGHT IN REACH.
--- NOTE | 2022-07-21 16:50 | NUR ---
SHIFT SUMMARY POD0 EGD. PT ADVANCED DIET BY GI. TOLERATING WELL. POD5 GAMMA NAILING. AQUACELL IN PLACE, C/D/I. PT ABLE TO TRANSFER WITH LIMITED ASST FROM RNEY TO BED. PT COMPLAINS OF SOME SORENESS IN THE R HIP. PT PASSING GAS BUT NO BOWEL MOVEMENT.
--- NOTE | 2022-07-22 04:01 | NUR ---
SHIFT SUMMARY A/0 X4- POD6 R HIP GAMMA NAILING, AQUACEL IN PLACE. VITAL SIGNS STABLE, MAINTAINED ABOVE 92% ON RA THROUGHOUT SHIFT. VOIDING WELL, USING URINAL INDEPENDENTLY. TOLERATING PO INTAKE. PAIN MANAGED W/ PO PAIN MEDICATIONS PER EMAR. NO ACUTE CHANGES THROUGHOUT SHIFT.
[2022-07-22 05:30] LABS: Hematocrit 24.1 % (37.0-53.0); Hemoglobin 7.7 g/dL (13.5-17.5); Mean Corpuscular HGB 30.3 pg (26.0-34.0); Mean Corpuscular Volume 95 fL (80-100); Mean Platelet Volume 11.1 fL (9.1-12.4); NRBC ABSOLUTE 0.12 K/mm3 (0.00-0.02); NRBC Auto 2.3 /100 WBC (0.0-0.2); Platelet Count 304 K/mm3 (150-400); RDW Coefficient Variation 26.1 % (11.7-14.2); RDW Standard Deviation 88.9 fL (35.1-46.3); Red Blood Cell Count 2.54 M/mm3 (4.30-5.90); White Blood Cell Count 5.17 K/mm3 (4.00-11.30)
[2022-07-22 05:44] VITALS: BP 108/69
[2022-07-22 07:23] VITALS: BP 98/68
--- NOTE | 2022-07-22 16:38 | NUR ---
SHIFT SUMMARY POD 6 GAMMA NAILING R FEMUR POD 1 EGD PT A&O X4, ABLE TO AMBULATE IN ROOM WITH FWW, AND NURSE ASST. AQUACELL DRESSING TO THE HIP CHANGED, C/D/I. INCISION CLOSED WITH GRECIA, NO REDNESS OR SWELLING. SACRAL AND HEEL DRESSING CHANGED, FOR PORECTION. PT DENIES ANY PAIN. DOING EXERCISES IN BED. VSS, CALL LIGHT WITHIN REACH.
[2022-07-22 20:05] VITALS: BP 103/71
[2022-07-23 03:56] LABS: Hematocrit 26.3 % (37.0-53.0); Hemoglobin 8.5 g/dL (13.5-17.5)
[2022-07-23 04:02] VITALS: BP 108/66
[2022-07-23 04:14] LABS: Bun/Creatinine Ratio 17.6 (12.0-20.0); Calcium, Blood 8.4 mg/dL (8.5-10.1); Creatinine, Blood 0.85 mg/dL (0.60-1.20); Potassium, Blood 3.8 mmol/L (3.5-5.5)
--- NOTE | 2022-07-23 04:31 | NUR ---
SHIFT SUMMARY AOX4. POD 7-R FEMUR GAMMA NAIL PINNING. AQUACEL DRSSING CHANGED YESTERDAY ON DAY SHIFT 07/22 DRESSING C/D/I. REPORTS MIN 4-5/10 PAIN IN R HIP, DENIES NEED FOR ANY PAIN MEDS T/O NIGHT WHILE @REST. ABLE TO WIGGLE R FOOT TOES, PULSE STRONG & CAP REFIL <3 SEC. VSS. STILL NO BM SINCE PRIOR TO SURGERY, GAVE STOOL SOFTENERS & BROWN COW DRINK. PT PASSING GAS, DENIES N/V, ACTIVE BT, TOLERATING PO INTAKE. AWAITING DC TO SNF. CALL LIGHT IN REACH, WILL CONT TO MONITOR.
[2022-07-23 07:41] VITALS: BP 112/69
[2022-07-23 12:28] LABS: SARS-Cov-2 (COVID-19) PCR, MMC NEGATIVE (NEGATIVE)
[2022-07-23 15:23] VITALS: BP 107/77
--- NOTE | 2022-07-23 16:02 | NUR ---
DISCHARGE PT DISCHARGED TO [facility] AT APPROX 1600. PT A&OX4, TOLERATING PO, AND VOIDING APPROPRIATELY. PT WORKED WITH OCCUPATIONAL AND PHYSICAL THERAPY THIS AM AND TOLERATED WELL. PT'S PAIN MANAGED WITH OXY PER EMAR. PT'S BELONGINGS RETURNED. PT ESCOURTED OUT IN W/C BY [facility] AND REPORT GIVEN TO [facility].
--- NOTE | 2022-07-23 16:22 | NUR ---
REPORT TO UV REPORT CALLED TO DEMAR PAN AT [facility].
== END 2022-07-23 16:03 | DRG 481 ==
LOC: ER 10:14 → SURS 12:51
PROVIDERS: Internal Medicine; Internal Medicine Gastroenterology; Orthopaedic Surgery; Student in an Organized Health Care Education/Training Program; ADMIT Internal Medicine
PROC: 0QS836Z Reposition Right Femoral Shaft with Intramedullary Internal Fixation Device, Percutaneous Approach (ICD-10-PCS; principal; 2022-07-16 13:30)
PROC: 30233N1 Transfusion of Nonautologous Red Blood Cells into Peripheral Vein, Percutaneous Approach (ICD-10-PCS; 2022-07-19)
PROC: 0DB68ZX Excision of Stomach, Via Natural or Artificial Opening Endoscopic, Diagnostic (ICD-10-PCS; 2022-07-21)
PROC: 0D758ZZ Dilation of Esophagus, Via Natural or Artificial Opening Endoscopic (ICD-10-PCS; 2022-07-21 11:00)
DX: S72.301A Unspecified fracture of shaft of right femur, initial encounter for closed fracture (principal); I69.351 Hemiplegia and hemiparesis following cerebral infarction affecting right dominant side; R13.10 Dysphagia, unspecified; F41.9 Anxiety disorder, unspecified; D46.9 Myelodysplastic syndrome, unspecified; S09.90XA Unspecified injury of head, initial encounter; S01.81XA Laceration without foreign body of other part of head, initial encounter; G47.00 Insomnia, unspecified; N40.0 Benign prostatic hyperplasia without lower urinary tract symptoms; E83.119 Hemochromatosis, unspecified; E78.5 Hyperlipidemia, unspecified; E03.9 Hypothyroidism, unspecified; D63.8 Anemia in other chronic diseases classified elsewhere; Z20.822 Contact with and (suspected) exposure to COVID-19; W01.0XXA Fall on same level from slipping, tripping and stumbling without subsequent striking against object, initial encounter; Z88.1 Allergy status to other antibiotic agents; Z79.899 Other long term (current) drug therapy; Z87.19 Personal history of other diseases of the digestive system; Z87.442 Personal history of urinary calculi; I69.320 Aphasia following cerebral infarction; I69.322 Dysarthria following cerebral infarction; I69.392 Facial weakness following cerebral infarction; Z98.890 Other specified postprocedural states; Z87.891 Personal history of nicotine dependence; Z79.02 Long term (current) use of antithrombotics/antiplatelets
CPT/HCPCS: 12001; 12014; 29505; 36415; 70450; 72125; 73502; 73552; 74230; 80048; 80053; 82728; 83540; 83550; 83735; 85014; 85018; 85025; 85027; 86850; 86900; 86901; 86923; 88305; 88312; 90471; 90714; 92526; 92610; 92611; 93005; 93010; 94760; 94762; 96374-59; 96375-59; 97110; 97116; 97162; 97166; 97530; 97535; 99285-25; A9270; C1713; C1769; G0480; J0690; J1100; J1650; J2250; J2270; J2405; J2704; J3010; J7030; J7050; J7120; P9016; U0004

== ENCOUNTER 2022-11-01 03:42 | Day surgery (SDC) | payer MEDICARE, OTHER ==
[~2022-11-01 03:42] MED LIST changes: +PLAVIX75 MG PO
[2022-11-01 14:02] VITALS: BP 114/76
[2022-11-01 14:21] VITALS: BP 87/50
[2022-11-01 15:34] VITALS: BP 91/67
[2022-11-01 15:52] VITALS: BP 110/54
[2022-11-01 16:58] VITALS: BP 103/71
[2022-11-01 17:29] VITALS: BP 101/75
== END 2022-11-01 23:18 | disposition home or self-care (01) ==
LOC: ATC 03:42 → EDSTATUS 14:00 → ATC 23:18
DX: C94.6 Myelodysplastic disease, not elsewhere classified (principal); F17.200 Nicotine dependence, unspecified, uncomplicated; Z88.8 Allergy status to other drugs, medicaments and biological substances; Z79.82 Long term (current) use of aspirin; Z79.899 Other long term (current) drug therapy
CPT/HCPCS: 36415; 36430; 86850; 86900; 86901; 86923; J7050; P9016

== ENCOUNTER → 2022-11-13 | Outpatient (CLI) | payer MEDICARE, OTHER ==
[2022-11-13 11:26] LABS: BASOPHILS PERCENT AUTO 4 % (0-2); EOSINOPHILS ABSOLUTE AUTO 0.08 K/mm3 (0.00-0.68); EOSINOPHILS PERCENT AUTO 3 % (0-6); Hematocrit 26.7 % (37.0-53.0); Hemoglobin 8.5 g/dL (13.5-17.5); IMMATURE GRAN ABSOLUTE AUTO 0.01 K/mm3 (0.00-0.10); IMMATURE GRAN PERCENT AUTO 0 % (0-1); LYMPHOCYTES ABSOLUTE AUTO 1.35 K/mm3 (0.84-5.20); LYMPHOCYTES PERCENT AUTO 52 % (21-46); MONOCYTES ABSOLUTE AUTO 0.26 K/mm3 (0.16-1.47); MONOCYTES PERCENT AUTO 10 % (4-13); Mean Corpuscular HGB 30.8 pg (26.0-34.0); Mean Corpuscular HGB Conc 31.8 g/dL (31.5-36.5); Mean Corpuscular Volume 97 fL (80-100); Mean Platelet Volume 11.1 fL (9.1-12.4); NEUTROPHILS ABSOLUTE AUTO 0.79 K/mm3 (1.96-9.15); NEUTROPHILS PERCENT AUTO 31 % (41-73); NRBC ABSOLUTE 0.02 K/mm3 (0.00-0.02); NRBC Auto 0.8 /100 WBC (0.0-0.2); Platelet Count 434 K/mm3 (150-400); RDW Coefficient Variation 25.7 % (11.7-14.2); RDW Standard Deviation 89.3 fL (35.1-46.3); Red Blood Cell Count 2.76 M/mm3 (4.30-5.90); White Blood Cell Count 2.59 K/mm3 (4.00-11.30)
== END | disposition home or self-care (01) ==
LOC: LAB SHORT 09:00 → LAB 09:00
PROVIDERS: Internal Medicine Hematology & Oncology
DX: C94.6 Myelodysplastic disease, not elsewhere classified (principal)
CPT/HCPCS: 85025

== ENCOUNTER → 2022-12-04 | Outpatient (CLI) | payer MEDICARE, OTHER ==
[2022-12-05 14:49] LABS: Albumin/Globulin Ratio 1.7 (0.8-1.8); Bilirubin, Total 0.7 mg/dL (0.1-1.0); Bun/Creatinine Ratio 21.5 (12.0-20.0); Calcium, Blood 8.8 mg/dL (8.5-10.1); Creatinine, Blood 0.75 mg/dL (0.60-1.20); Globulin, Blood 2.4 g/dL (2.2-4.0); Phosphorus, Blood 3.8 mg/dL (2.5-4.9); Potassium, Blood 4.2 mmol/L (3.5-5.5); Total Protein, Blood 6.4 g/dL (6.4-8.2)
== END | disposition home or self-care (01) ==
LOC: LAB 09:39 → LAB SHORT 09:39
PROVIDERS: Internal Medicine Hematology & Oncology
DX: D46.9 Myelodysplastic syndrome, unspecified (principal); G45.9 Transient cerebral ischemic attack, unspecified; R23.1 Pallor
CPT/HCPCS: 80053; 84100

== ENCOUNTER 2022-12-25 12:22 | Emergency (ER) | payer MEDICARE, OTHER ==
[~2022-12-25] VITALS: Ht 175.3 cm; Wt 62.6 kg
[2022-12-25 13:12] LABS: Hemoglobin 6.3 g/dL (13.5-17.5); Mean Platelet Volume 11.1 fL (9.1-12.4); Platelet Count 328 K/mm3 (150-400); White Blood Cell Count 1.86 K/mm3 (4.00-11.30)
[2022-12-25 13:21] LABS: Hematocrit 19.3 % (37.0-53.0); Mean Corpuscular HGB 31.5 pg (26.0-34.0); Mean Corpuscular HGB Conc 32.6 g/dL (31.5-36.5); Mean Corpuscular Volume 97 fL (80-100); RDW Coefficient Variation 29.6 % (11.7-14.2); RDW Standard Deviation 105.3 fL (35.1-46.3)
[2022-12-25 13:25] LABS: Albumin, Blood 3.9 g/dL (3.4-5.0); Albumin/Globulin Ratio 1.4 (0.8-1.8); Bilirubin, Total 1.5 mg/dL (0.1-1.0); Bun/Creatinine Ratio 23.6 (12.0-20.0); Calcium, Blood 8.7 mg/dL (8.5-10.1); Creatinine, Blood 0.85 mg/dL (0.60-1.20); Globulin, Blood 2.7 g/dL (2.2-4.0); Total Protein, Blood 6.6 g/dL (6.4-8.2)
[2022-12-25 13:49] LABS: BASOPHILS ABSOLUTE MAN 0.01 K/mm3 (0.00-0.23); BASOPHILS PERCENT MAN 1 % (0-2); EOSINOPHILS ABSOLUTE MAN 0.01 K/mm3 (0.00-0.68); EOSINOPHILS PERCENT MAN 1 % (0-6); LYMPHOCYTES PERCENT MAN 22 % (21-46); MONOCYTES ABSOLUTE MAN 0.13 K/mm3 (0.16-1.47); MONOCYTES PERCENT MAN 7 % (4-13); NEUTROPHILS ABSOLUTE MAN 1.28 K/mm3 (1.96-9.15); SEG NEUTROPHILS PERCENT MAN 69 % (41-73); TOTAL CELLS COUNTED 100
[2022-12-25 18:15] VITALS: BP 98/60
== END 2022-12-25 18:32 | disposition home or self-care (01) ==
LOC: ER 12:22
PROVIDERS: Emergency Medicine
DX: D64.9 Anemia, unspecified (principal); D70.9 Neutropenia, unspecified; F17.200 Nicotine dependence, unspecified, uncomplicated; Z88.8 Allergy status to other drugs, medicaments and biological substances; Z79.890 Hormone replacement therapy; Z85.6 Personal history of leukemia
CPT/HCPCS: 36430; 80053; 84100; 85025; 86850; 86900; 86901; 86923; 96360; 96361; 99283-25; J7030; P9016

== ENCOUNTER → 2023-01-01 | Outpatient (CLI) | payer MEDICARE, OTHER ==
[2023-01-01 14:37] LABS: Albumin, Blood 4.2 g/dL (3.4-5.0); Albumin/Globulin Ratio 1.6 (0.8-1.8); Bilirubin, Total 1.2 mg/dL (0.1-1.0); Bun/Creatinine Ratio 22.4 (12.0-20.0); Calcium, Blood 8.8 mg/dL (8.5-10.1); Creatinine, Blood 0.8 mg/dL (0.60-1.20); Globulin, Blood 2.7 g/dL (2.2-4.0); Potassium, Blood 4.6 mmol/L (3.5-5.5); Total Protein, Blood 6.9 g/dL (6.4-8.2)
== END ==
LOC: LAB SHORT 13:30 → LAB 13:30
PROVIDERS: Internal Medicine Hematology & Oncology
DX: D46.9 Myelodysplastic syndrome, unspecified (principal)
CPT/HCPCS: 80053

== ENCOUNTER → 2023-01-08 | Outpatient (CLI) | payer MEDICARE, OTHER ==
[2023-01-08 17:15] LABS: Albumin, Blood 3.8 g/dL (3.4-5.0); Albumin/Globulin Ratio 1.4 (0.8-1.8); Bilirubin, Total 0.8 mg/dL (0.1-1.0); Bun/Creatinine Ratio 17.8 (12.0-20.0); Calcium, Blood 8.6 mg/dL (8.5-10.1); Creatinine, Blood 0.73 mg/dL (0.60-1.20); Globulin, Blood 2.7 g/dL (2.2-4.0); Phosphorus, Blood 3.1 mg/dL (2.5-4.9); Potassium, Blood 4.3 mmol/L (3.5-5.5); Total Protein, Blood 6.5 g/dL (6.4-8.2)
== END | disposition home or self-care (01) ==
LOC: LAB 10:20 → LAB SHORT 10:20
PROVIDERS: Internal Medicine Hematology & Oncology
DX: D46.9 Myelodysplastic syndrome, unspecified (principal)
CPT/HCPCS: 80053; 84100

== ENCOUNTER 2023-01-09 02:17 | Day surgery (SDC) | payer MEDICARE, OTHER ==
[2023-01-09] VITALS (7 sets, daily range): BP systolic 84–95; BP diastolic 40–55
--- NOTE | 2023-01-09 15:34 | NUR ---
CALLED DR OAKES'S OFFICE TO INFORM THEM OF PATIENTS BLOOD PRESSURE, 'S OFFICE IS CURRENTLY CLOSED. WILL CONTINUE TO MONITOR. MAY NEED TO SEND PT TO THE ER IF BP DOES NOT RISE AFTER 2ND UNIT OF PRBC'S
--- NOTE | 2023-01-09 17:39 | NUR ---
PT ASYMPTOMATIC WITH LOW BP. PT RUNS LOW NORMALLY STATES FAMILY MEMBER THAT ARRIVED FOR PICK-UP TRANSPORTATION. PT ABLE TO AMBULATE STEADY WITH WALKER TO THE BATHROOM WITHOUT INCIDENT. REVIEWED LOW BP SYMPTOMS, SITTING AND STANDING SLOWLY, AND GOING TO ER IF PT BECOMES SYMPTOMATIC. FAMILY AND PT VERBALIZED UNDERSTANDING. PT ESCORTED VIA W/C TO PRIVATE CAR WITH BELONGINGS. PT D/C ASYMPTOMATIC WITH LOW BP
== END 2023-01-09 17:32 | disposition home or self-care (01) ==
LOC: ATC 02:17
DX: D46.9 Myelodysplastic syndrome, unspecified (principal); Z86.73 Personal history of transient ischemic attack (TIA), and cerebral infarction without residual deficits; R23.1 Pallor
CPT/HCPCS: 36415; 36430; 86850; 86900; 86901; 86923; J7050; P9016

== ENCOUNTER 2023-01-24 04:57 | Day surgery (SDC) | payer MEDICARE, OTHER ==
[2023-01-24] VITALS (7 sets, daily range): BP systolic 81–105; BP diastolic 49–69
== END 2023-01-24 11:30 | disposition home or self-care (01) ==
LOC: ATC 04:57
DX: D46.9 Myelodysplastic syndrome, unspecified (principal); K21.9 Gastro-esophageal reflux disease without esophagitis; E03.9 Hypothyroidism, unspecified; J44.9 Chronic obstructive pulmonary disease, unspecified; E78.49 Other hyperlipidemia; Z79.890 Hormone replacement therapy; Z79.82 Long term (current) use of aspirin; Z79.899 Other long term (current) drug therapy
CPT/HCPCS: 36415; 36430; 86850; 86900; 86901; 86923; J7050; P9016

== ENCOUNTER 2023-02-04 11:51 | Day surgery (SDC) | payer MEDICARE, OTHER ==
[2023-02-04 14:14] VITALS: BP 98/60
[2023-02-04 14:32] VITALS: BP 81/45
[2023-02-04 15:33] VITALS: BP 86/61
[2023-02-04 16:02] VITALS: BP 87/51
[2023-02-04 16:23] VITALS: BP 85/48
[2023-02-04 17:53] VITALS: BP 96/50
== END 2023-02-04 17:45 | disposition home or self-care (01) ==
LOC: ATC 11:51 → EDSTATUS 11:52 → ATC 17:45
DX: D46.9 Myelodysplastic syndrome, unspecified (principal); E03.9 Hypothyroidism, unspecified; Z87.891 Personal history of nicotine dependence
CPT/HCPCS: 36415; 36430; 86850; 86900; 86901; 86923; J7050; P9016

== ENCOUNTER 2023-02-19 08:19 | Day surgery (SDC) | payer MEDICARE, OTHER ==
[2023-02-18 13:19] LABS: Hematocrit 25.9 % (37.0-53.0); Hemoglobin 7.9 g/dL (13.5-17.5); Mean Corpuscular HGB Conc 30.5 g/dL (31.5-36.5); Mean Corpuscular Volume 99 fL (80-100); Mean Platelet Volume 11.9 fL (9.1-12.4); Platelet Count 271 K/mm3 (150-400); RDW Coefficient Variation 18.7 % (11.7-14.2); RDW Standard Deviation 60.8 fL (35.1-46.3); Red Blood Cell Count 2.63 M/mm3 (4.30-5.90); White Blood Cell Count 3.29 K/mm3 (4.00-11.30)
[2023-02-18 14:26] LABS: BAND PERCENT MAN 19 % (0-8); BASOPHILS ABSOLUTE MAN 0.03 K/mm3 (0.00-0.23); BASOPHILS PERCENT MAN 1 % (0-2); EOSINOPHILS PERCENT MAN 0 % (0-6); LYMPHOCYTES ABSOLUTE MAN 1.25 K/mm3 (0.84-5.20); LYMPHOCYTES PERCENT MAN 38 % (21-46); MONOCYTES ABSOLUTE MAN 0.09 K/mm3 (0.16-1.47); MONOCYTES PERCENT MAN 3 % (4-13); MYELOCYTE ABSOLUTE MAN 0.03 K/mm3 (0.00-0.00); MYELOCYTE PERCENT MAN 1 % (0-0); NEUTROPHILS ABSOLUTE MAN 1.84 K/mm3 (1.96-9.15); SEG NEUTROPHILS PERCENT MAN 37 % (41-73); TOTAL CELLS COUNTED 100
[2023-02-18 14:27] LABS: OTHER CELL PERCENT MAN 1 % (0-0)
[2023-02-19 14:05] VITALS: BP 110/47
[2023-02-19 14:25] VITALS: BP 146/59
[2023-02-19 15:27] VITALS: BP 90/48
[2023-02-19 15:45] VITALS: BP 108/52
[2023-02-19 16:04] VITALS: BP 95/44
[2023-02-19 17:03] VITALS: BP 98/44
== END 2023-02-19 17:37 | disposition home or self-care (01) ==
LOC: ATC 08:19 → EDSTATUS 08:20 → ATC 17:37
PROVIDERS: Internal Medicine Hematology & Oncology
DX: D46.9 Myelodysplastic syndrome, unspecified (principal); K21.9 Gastro-esophageal reflux disease without esophagitis; E03.9 Hypothyroidism, unspecified; E78.49 Other hyperlipidemia; J44.9 Chronic obstructive pulmonary disease, unspecified; Z87.891 Personal history of nicotine dependence; Z79.01 Long term (current) use of anticoagulants; Z79.890 Hormone replacement therapy; Z79.899 Other long term (current) drug therapy
CPT/HCPCS: 36415; 36430; 85025; 86850; 86900; 86901; 86923; J7050; P9016

== ENCOUNTER 2023-02-28 08:55 | Inpatient (IN) | payer MEDICARE, OTHER ==
[~2023-02-28] VITALS: Ht 175.3 cm; Wt 59.7 kg
[2023-02-28 09:34] LABS: Hematocrit 28.5 % (37.0-53.0); Hemoglobin 8.8 g/dL (13.5-17.5); Mean Corpuscular HGB 29.8 pg (26.0-34.0); Mean Corpuscular HGB Conc 30.9 g/dL (31.5-36.5); Mean Corpuscular Volume 97 fL (80-100); Mean Platelet Volume 12.4 fL (9.1-12.4); Platelet Count 279 K/mm3 (150-400); RDW Coefficient Variation 17.2 % (11.7-14.2); RDW Standard Deviation 57.1 fL (35.1-46.3); Red Blood Cell Count 2.95 M/mm3 (4.30-5.90)
[2023-02-28 09:36] LABS: White Blood Cell Count 5.51 K/mm3 (4.00-11.30)
[2023-02-28 10:01] LABS: Albumin, Blood 3.6 g/dL (3.4-5.0); Bilirubin, Total 0.8 mg/dL (0.1-1.0); Bun/Creatinine Ratio 29.8 (12.0-20.0); Calcium, Blood 8.9 mg/dL (8.5-10.1); Creatinine, Blood 0.64 mg/dL (0.60-1.20); Globulin, Blood 3.7 g/dL (2.2-4.0); Magnesium, Blood 2.2 mg/dL (1.6-2.4); Total Protein, Blood 7.3 g/dL (6.4-8.2)
[2023-02-28 10:12] LABS: BAND PERCENT MAN 8 % (0-8); BASOPHILS ABSOLUTE MAN 0.11 K/mm3 (0.00-0.23); BASOPHILS PERCENT MAN 2 % (0-2); EOSINOPHILS ABSOLUTE MAN 0.05 K/mm3 (0.00-0.68); EOSINOPHILS PERCENT MAN 1 % (0-6); LYMPHOCYTES ABSOLUTE MAN 0.88 K/mm3 (0.84-5.20); LYMPHOCYTES PERCENT MAN 16 % (21-46); MONOCYTES ABSOLUTE MAN 0.27 K/mm3 (0.16-1.47); MONOCYTES PERCENT MAN 5 % (4-13); NEUTROPHILS ABSOLUTE MAN 4.18 K/mm3 (1.96-9.15); SEG NEUTROPHILS PERCENT MAN 68 % (41-73); TOTAL CELLS COUNTED 100
[2023-02-28 14:03] LABS: Source, Urine Clean Catch
[2023-02-28 14:09] LABS: Appearance, Urine Clear (Clear); Bilirubin, Urine Neg (Neg); Blood, Urine Neg (Neg); Color, Urine Amber (P-Yellow); Glucose Qualitative, Urine Neg (Neg); Ketones, Urine Neg (Neg); Leukocyte Esterase, Urine 1+ (Neg); Nitrite, Urine Neg (Neg); Protein, Urine 1+ (Neg); Specific Gravity, Urine 1.025 (1.003-1.022); Urobilinogen, Urine NORM (Normal)
[2023-02-28 14:23] LABS: Calcium Oxalate Crystals Few /hpf
[2023-02-28 14:24] LABS: Bacteria Few /hpf; Mucus Light (0-Heavy); Red Blood Cells, Urine 0-2 /hpf (0-2); Squamous Epithelial Cells Not Seen /hpf (Few)
[2023-02-28 14:31] LABS: Adenovirus Not Detected (NOT DETECT); Bordetella pertussis Not Detected (NOT DETECT); Chlamydophila pneumoniae Not Detected (NOT DETECT); Coronavirus 229E Not Detected (NOT DETECT); Coronavirus HKU1 Not Detected (NOT DETECT); Coronavirus NL63 Not Detected (NOT DETECT); Coronavirus OC43 Not Detected (NOT DETECT); Human Metapneumovirus Not Detected (NOT DETECT); Human Rhinovirus/Enterovirus Not Detected (NOT DETECT); Influenza A/2009-H1 Not Detected (NOT DETECT); Influenza A/H1 Not Detected (NOT DETECT); Influenza A/H3 Not Detected (NOT DETECT); Influenza B Not Detected (NOT DETECT); Mycoplasma pneumoniae Not Detected (NOT DETECT); Parainfluenza Virus 1 Not Detected (NOT DETECT); Parainfluenza Virus 2 Not Detected (NOT DETECT); Parainfluenza Virus 3 Not Detected (NOT DETECT); Parainfluenza Virus 4 Not Detected (NOT DETECT); Respiratory Syncytial Virus Not Detected (NOT DETECT); SARS-Cov-2 (COVID-19), BioFire Not Detected (NOT DETECT)
[2023-02-28 18:35] VITALS: BP 103/47
[2023-02-28] MEDS ORDERED: MIRALAX17 GM PO (18:38)
[2023-02-28] MEDS ORDERED: DULCOLAX400 MG/5 M PO (18:38)
[2023-02-28] MEDS ORDERED: [UNRECOGNIZED DRUG - OTHER] PR (18:39)
[2023-02-28 20:45] VITALS: BP 91/51
[2023-02-28 22:56] VITALS: BP 93/56
[2023-02-28 23:49] VITALS: BP 89/59
[2023-03-01 01:00] VITALS: BP 112/81
[2023-03-01 03:43] VITALS: BP 98/64
--- NOTE | 2023-03-01 04:29 | NUR ---
SHIFT SUMMARY. PT HAS BEEN DOING WELL THIS SHIFT. AOX4, PLEASANT, COOPERATIVE WITH CARE. VERY SLURRED SPEECH, AT TIMES IS VERY DIFFICULT TO UNDERSTAND WHAT HE IS SAYING. HAS BEEN AT BEDSIDE THROUGHOUT MOST OF SHIFT AND IS BETTER ABLE TO DISCERN WHAT PT IS TRYING TO COMMUNICATE AT TIMES. NO PAIN REPORTED THIS SHIFT. NO REPORTED CHEST PAIN/PRESSURE, DIZZINESS, VERTIGO, N/V. BP HAS BEEN SOFT THROUGHOUT SHIFT. SPOKE WITH DR. SAWYER EARLY IN SHIFT WHO ORDERED NS @ 100. FLUIDS INFUSING SINCE WITHOUT DIFFICULTY. MONITORING BLOOD PRESSURE AND WILL UPDATE RESIDENT SHOULD BP RUN LOW. CONTINENT, CALLS APPROPRIATELY FOR ASSISTANCE. HAS BEEN SATTING WELL ON ROOM AIR THROUGHOUT SHIFT. DRESSING ON LUE REMAINS C/D/I, CHANGED LATE IN DAY SHIFT YESTERDAY PER REPORT. STRICT NPO PENDING SWALLOW EVAL TODAY ON DAY SHIFT. 1-2 PERSON ASSIST TO BSC WITH FWW. BED LOCKED IN LOWEST POSITION. CALL LIGHT LEFT WITHIN REACH. CONTINUING TO MONITOR.
[2023-03-01 04:49] LABS: Hematocrit 23.1 % (37.0-53.0); Hemoglobin 7.1 g/dL (13.5-17.5); Mean Corpuscular HGB 29.7 pg (26.0-34.0); Mean Corpuscular HGB Conc 30.7 g/dL (31.5-36.5); Mean Corpuscular Volume 97 fL (80-100); Platelet Count 242 K/mm3 (150-400); RDW Coefficient Variation 17.2 % (11.7-14.2); Red Blood Cell Count 2.39 M/mm3 (4.30-5.90)
[2023-03-01 05:08] LABS: Albumin, Blood 2.9 g/dL (3.4-5.0); Bilirubin, Total 0.7 mg/dL (0.1-1.0); Bun/Creatinine Ratio 20.2 (12.0-20.0); Calcium, Blood 8.3 mg/dL (8.5-10.1); Creatinine, Blood 0.6 mg/dL (0.60-1.20); Globulin, Blood 2.9 g/dL (2.2-4.0); Phosphorus, Blood 2.6 mg/dL (2.5-4.9); Potassium, Blood 3.7 mmol/L (3.5-5.5); Total Protein, Blood 5.8 g/dL (6.4-8.2)
[2023-03-01 05:22] LABS: White Blood Cell Count 4.08 K/mm3 (4.00-11.30)
[2023-03-01 06:10] LABS: BAND PERCENT MAN 10 % (0-8); BASOPHILS PERCENT MAN 0 % (0-2); EOSINOPHILS PERCENT MAN 0 % (0-6); LYMPHOCYTES ABSOLUTE MAN 1.02 K/mm3 (0.84-5.20); LYMPHOCYTES PERCENT MAN 25 % (21-46); MONOCYTES ABSOLUTE MAN 0.12 K/mm3 (0.16-1.47); MONOCYTES PERCENT MAN 3 % (4-13); NEUTROPHILS ABSOLUTE MAN 2.93 K/mm3 (1.96-9.15); SEG NEUTROPHILS PERCENT MAN 62 % (41-73); TOTAL CELLS COUNTED 100
[2023-03-01 09:17] VITALS: BP 101/72
--- NOTE | 2023-03-01 09:40 | NUR ---
PT TO IMMAGING FOR MRI AT APROX 2722
--- NOTE | 2023-03-01 11:44 | NUR ---
PT REQUESTING HIS DAILY DOSE OF PREDNISONE. PT STATES HE WAS STARTED ON IT THIS SATURDAY THE . DR DORAN NOTIFIED, ORDER FOR 10MG PREDNISONE DAILY TO START TODAY.
[2023-03-01 14:00] VITALS: BP 96/65
[2023-03-01 16:15] VITALS: BP 103/70
--- NOTE | 2023-03-01 18:42 | NUR ---
SHIFT SUMMARY PT HAS DONE WELL T/O SHIFT. MRI DONE THIS SHIFT. PT AMBULATED WITH THERAPY USING FWW. UP TO CHAIR. SPEECH THERAPY EVAL DONE-MEDS TO BE GIVEN WHOLE IN APPLESAUCE. ALL MEALS GIVEN WITH PT SITTING AT AT LEAST 90 DEGREES AND UP FOR AT LEAST 30-60 MIN FOLLOWING ALL MEALS. PT TOLERATED REGULAR DIET. VOIDING SMALL AMOUNTS CONSISTENTLY T/O SHIFT USING URINAL. DIFFICULT TO UNDERSTAND AT TIMES TO SLURRED SPEECH, BUT ABLE TO MAKE NEEDS KNOW. SALINE LOCKED OTHER THAN FOR IV ABX.
[2023-03-01 19:58] VITALS: BP 103/67
[2023-03-02 01:05] VITALS: BP 102/73
[2023-03-02 04:32] VITALS: BP 124/72
[2023-03-02 05:16] LABS: Hematocrit 26.9 % (37.0-53.0); Hemoglobin 8.4 g/dL (13.5-17.5); Mean Corpuscular HGB 29.8 pg (26.0-34.0); Mean Corpuscular HGB Conc 31.2 g/dL (31.5-36.5); Mean Corpuscular Volume 95 fL (80-100); Mean Platelet Volume 11.8 fL (9.1-12.4); NRBC ABSOLUTE 0.02 K/mm3 (0.00-0.02); NRBC Auto 0.5 /100 WBC (0.0-0.2); Platelet Count 271 K/mm3 (150-400); RDW Coefficient Variation 17.2 % (11.7-14.2); RDW Standard Deviation 55.9 fL (35.1-46.3); Red Blood Cell Count 2.82 M/mm3 (4.30-5.90)
--- NOTE | 2023-03-02 05:28 | NUR ---
SHIFT SUMMARY. PT HAS BEEN DOING WELL THROUGHOUT THIS SHIFT. NO ACUTE CHANGES. AOX4, PLEASANT, COOPERATIVE WITH CARE. CONTINUES TO HAVE VERY SLURRED SPEECH, FREQUENTLY DIFFICULT TO UNDERSTAND. HAS BEEN ABLE TO SLEEP THROUGH MOST OF SHIFT SINCE PO XANAX ADMINISTRATION LATE LAST NIGHT. NO PAIN REPORTED. L ARM DRESSING REMAINS C/D/I, CHANGED ON DAY SHIFT YESTERDAY PER REPORT. PT CALLS APPROPRIATELY. INDEPENDENT WITH URINAL. BP HAS BEEN SOFT BUT STABLE, REMAINED HIGHER THROUGHOUT SHIFT THAN PREVIOUS SHIFT WITH THIS NURSE. BED LOCKED IN LOWEST POSITION. CALL LIGHT LEFT WITHIN REACH.
[2023-03-02 05:39] LABS: BAND PERCENT MAN 7 % (0-8); BASOPHILS ABSOLUTE MAN 0.04 K/mm3 (0.00-0.23); BASOPHILS PERCENT MAN 1 % (0-2); EOSINOPHILS PERCENT MAN 0 % (0-6); LYMPHOCYTES ABSOLUTE MAN 0.96 K/mm3 (0.84-5.20); LYMPHOCYTES PERCENT MAN 23 % (21-46); MONOCYTES ABSOLUTE MAN 0.29 K/mm3 (0.16-1.47); MONOCYTES PERCENT MAN 7 % (4-13); NEUTROPHILS ABSOLUTE MAN 2.89 K/mm3 (1.96-9.15); SEG NEUTROPHILS PERCENT MAN 62 % (41-73); TOTAL CELLS COUNTED 100
[2023-03-02 06:05] LABS: Anion Gap 3 mmol/L (6-16); Blood Urea Nitrogen 16 mg/dL (8-24); Bun/Creatinine Ratio 23.9 (12.0-20.0); CO2, Blood 31 mmol/L (21-32); Calcium, Blood 8.5 mg/dL (8.5-10.1); Chloride, Blood 108 mmol/L (98-108); Creatinine, Blood 0.67 mg/dL (0.60-1.20); Glomerular Filtration Rate 96 (60-); Glucose, Blood 98 mg/dL (70-99); Phosphorus, Blood 2.8 mg/dL (2.5-4.9); Potassium, Blood 3.9 mmol/L (3.5-5.5); Sodium, Blood 142 mmol/L (136-145)
[2023-03-02 09:51] VITALS: BP 98/67
[2023-03-02] MEDS ORDERED: PANT40 PO (11:01)
[2023-03-02] MEDS ORDERED: Prednisone10 MG PO (11:02)
[2023-03-02] MEDS ORDERED: AZIT500 PO (11:03)
[2023-03-02] MEDS ORDERED: AMOX875 PO (11:03)
--- NOTE | 2023-03-02 12:17 | NUR ---
PATIENT DISCHARGED VIA PRIVATE VEHICLE,FAMILY MEMBER IN ROOM AND AKNOWLEDGES INSTRUCTIONS. ALL BELONGNGS WITH PATIENT IN BAG, AND IV TAKEN OUT WITH NO COMPLICATIONS.
== END 2023-03-02 11:45 | disposition home or self-care (01) | DRG 689 ==
LOC: ER 08:55 → PCU 15:44
PROVIDERS: Physician Assistant; Student in an Organized Health Care Education/Training Program; ADMIT Family Medicine
DX: N39.0 Urinary tract infection, site not specified (principal); J18.9 Pneumonia, unspecified organism; Z68.1 Body mass index [BMI] 19.9 or less, adult; R13.10 Dysphagia, unspecified; D46.9 Myelodysplastic syndrome, unspecified; R62.7 Adult failure to thrive; F41.9 Anxiety disorder, unspecified; E86.0 Dehydration; Z66 Do not resuscitate; E03.9 Hypothyroidism, unspecified; I69.320 Aphasia following cerebral infarction; I69.322 Dysarthria following cerebral infarction; I69.398 Other sequelae of cerebral infarction; M21.371 Foot drop, right foot; Z79.890 Hormone replacement therapy
CPT/HCPCS: 0202U; 36415; 51798; 70450; 70551; 71046; 80053; 80069; 81001; 83605; 83735; 83880; 84100; 84145; 84484; 85025; 87040; 87086; 92610; 93005; 93010; 94644; 94664; 96361; 96374; 96375; 97110; 97112; 97116; 97161; 97165; 97530; 99285-25; A9270; J0456; J0696; J1650; J2060; J7030; J7050; J7512

== ENCOUNTER 2023-03-06 00:41 | Day surgery (SDC) | payer MEDICARE, OTHER ==
[2023-03-06] VITALS (7 sets, daily range): BP systolic 99–122; BP diastolic 58–88
[~2023-03-06 00:41] MED LIST changes: +AMOX875 PO; +AZIT500 PO; +DULCOLAX400 MG/5 M PO; +MIRALAX17 GM PO; +PANT40 PO; +Prednisone10 MG PO; +[UNRECOGNIZED DRUG - OTHER] PR
== END 2023-03-06 17:25 | disposition home or self-care (01) ==
LOC: ATC 00:41
DX: D46.9 Myelodysplastic syndrome, unspecified (principal); E03.9 Hypothyroidism, unspecified; J44.9 Chronic obstructive pulmonary disease, unspecified; E78.2 Mixed hyperlipidemia; K21.9 Gastro-esophageal reflux disease without esophagitis; D63.8 Anemia in other chronic diseases classified elsewhere; Z87.891 Personal history of nicotine dependence; Z88.8 Allergy status to other drugs, medicaments and biological substances; Z79.82 Long term (current) use of aspirin; Z79.890 Hormone replacement therapy; Z79.899 Other long term (current) drug therapy
CPT/HCPCS: 36415; 36430; 86850; 86900; 86901; 86923; J7050; P9016

== ENCOUNTER 2023-03-26 06:55 | Observation (INO) | payer MEDICARE, OTHER ==
[~2023-03-26] VITALS: Ht 177.8 cm; Wt 52.5 kg
[2023-03-26 07:43] LABS: Hematocrit 24.4 % (37.0-53.0); Hemoglobin 7.4 g/dL (13.5-17.5); Mean Corpuscular HGB 27.9 pg (26.0-34.0); Mean Corpuscular HGB Conc 30.3 g/dL (31.5-36.5); Mean Corpuscular Volume 92 fL (80-100); Platelet Count 258 K/mm3 (150-400); RDW Coefficient Variation 19.5 % (11.7-14.2); RDW Standard Deviation 60.7 fL (35.1-46.3); Red Blood Cell Count 2.65 M/mm3 (4.30-5.90)
[2023-03-26 08:12] LABS: Albumin, Blood 3.7 g/dL (3.4-5.0); Albumin/Globulin Ratio 1.1 (0.8-1.8); Bilirubin, Total 0.9 mg/dL (0.1-1.0); Bun/Creatinine Ratio 44.5 (12.0-20.0); Calcium, Blood 9.3 mg/dL (8.5-10.1); Creatinine, Blood 0.7 mg/dL (0.60-1.20); Globulin, Blood 3.4 g/dL (2.2-4.0); Magnesium, Blood 2.3 mg/dL (1.6-2.4); Potassium, Blood 3.9 mmol/L (3.5-5.5); Thyroid Stimulating Hormone 1.29 uIU/mL (0.360-4.800); Total Protein, Blood 7.1 g/dL (6.4-8.2)
[2023-03-26 08:14] LABS: NRBC ABSOLUTE 0.02 K/mm3 (0.00-0.02); NRBC Auto 0.3 /100 WBC (0.0-0.2); White Blood Cell Count 7.56 K/mm3 (4.00-11.30)
[2023-03-26 08:44] LABS: BAND PERCENT MAN 3 % (0-8); BASOPHILS PERCENT MAN 0 % (0-2); EOSINOPHILS PERCENT MAN 0 % (0-6); LYMPHOCYTES % ATYPICAL MANUAL 1 % (0-0); LYMPHOCYTES PERCENT MAN 7 % (21-46); MONOCYTES PERCENT MAN 4 % (4-13); MYELOCYTE ABSOLUTE MAN 0.07 K/mm3 (0.00-0.00); MYELOCYTE PERCENT MAN 1 % (0-0); NEUTROPHILS ABSOLUTE MAN 6.57 K/mm3 (1.96-9.15); SEG NEUTROPHILS PERCENT MAN 84 % (41-73); TOTAL CELLS COUNTED 100
[2023-03-26 10:15] VITALS: BP 106/65
[2023-03-26 10:26] LABS: Base Excess Venous 11.8 mmol/L; Bicarbonate Venous 34.3 mmol/L (24.0-30.0); PCO2 Venous 60.1 mmHg (38-42)
--- NOTE | 2023-03-26 15:12 | NUR ---
"SPiritual Care | Pt. Request Pt. is awake in bed and welcomes my visit. Pt. displays evidence of slurred speach, yet can respond with one word sentences clearly. Pt. ffirms with a nod that he is a person of ileana and that he request prayer. Prayed with with Pt. During prayer Pts. daughter arrived and joined. Pt. 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
--- NOTE | 2023-03-26 15:57 | NUR ---
SHIFT SUMMARY: ASSUMED CARE OF PATIENT UPON HIS ARRIVAL FROM ER AT 1100 THIS MORNING. 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 C/O GERARDO; TYLENOL ELIXIR GIVEN, AFTER WHICH HE COUGHED FOR A WHILE AND STATED THAT IT BURNED HIS THROAT. PER HIS , HE CAN TAKE MEDICATIONS WHOLE IN VANILLA PUDDING, SO ORDER CHANGED TO PO. PALLIATIVE CARE RN AT BEDSIDE AFTER ADMISSION. HE IS VERY FRAIL AND CACHECTIC, APPETITE POOR. SKIN IS FRAGILE; PLACED FOAM OVERLAY ON BED. GOT UP WITH 1P ASSIST AND FWW TO BR; ACTIVITY TOLERANCE IS POOR. ON OXYGEN @ 2 L/MIN NC FOR COMFORT. HIS RR IS ~30 AND VERY SHALLOW. AND DAUGHTER AT BEDSIDE.
--- NOTE | 2023-03-26 19:03 | NUR ---
pt seen in with family at bedside. Pt alert struggles with communication. Nurse gave him some tylenol liquid and pt was able to swallow with diffculty but stated set his throat on fire and and painfull. he has amild headach and slight ringing in his ears. His left eye lid had some lesions that are uncomfortable. both eyes are sore and dry. Some bulging and he cannot close them all the way. oral inspection has some mild thrush on back of tounge. he is thin and frail. He denies nausea tolerating some pudding. mild pain to joints and back. He is anxious. Provieded pointing boards and a tablet for communication. Review of medications with family. comfort cart provided. Called physician for trush medication and eye care. proveded special pillow for pressue care on low back. will update tomorrow.
--- NOTE | 2023-03-27 06:21 | NUR ---
Shift Summary Pt became tachypneic tonight, gasping for air. Increased his NC O2 from 2L to 3L, gave PRN Roxinol for air hunger. I also gave atropine SL twice for excessive secretions. After 2nd treatment with Roxinol pt was able to sleep comfortably. His is in the room and requested we skip 0600 protonix pill so pt could continue to sleep. Pt is on comfort care. He is alert and oriented but difficult to assess orientation because he is mostly unable to verbally communicate. Lung sounds are wet, he and his attempted bedside suction but secretions were too deep to reach with the robert.
--- NOTE | 2023-03-27 09:20 | NUR ---
PT GASPING FOR AIR DURING BEDSIDE SHIFT REPORT. AT BEDSIDE. PT REPOSITIONED FOR COMFORT AND MEDICATED PER EMAR. PALLIATIVE CARE CALLED TO BEDSIDE. MEDICATED 1 HOUR LATER PER EMAR. FAMILY NOW AT BEDSIDE. PT APPEARS TO BE ANXIOUS WITH AIR HUNGER. DR. DORAN AT BEDSIDE. ORDERED ADDITIONAL DOSE OF MEDICATION BE GIVEN AT THAT TIME. MEDICATION ADMINISTERED. TOLD FAMILY TO CALL ME FOR ANY NEEDS.
--- NOTE | 2023-03-27 10:23 | NUR ---
Comfort Care Supportive Visit Delayed Entry Called to room by Primary RN as pt is having respiratory distress and is requiring frequent medical interventions. is at bedside. Pt is restless. reports "this is the most comfortable I have seen him in 2 days." Tachypnea, shallow breaths. Mottling BLE/BUE. PAINAD reflects pain. Anxiety and secreations noted. This PC RN advised model and pattern supervisor that pt would greatly benfit from Lorazepam and Scopolamine. model and pattern supervisor agreeable to Rx interventions and will be administering. declined repositioning pt at this time. Provided with home options list as they have not yet thought about post mortum care.
--- NOTE | 2023-03-27 11:18 | NUR ---
LATE ENTRY- FAMILY ALERTED THAT PT HAD PASSED. ANTHONY NAGY RN VERIFIED WITH MYSELF THAT PT HEART HAD STOPPED AT 1002. DR. DORAN NOTIFIED. FAMILY AT BEDSIDE. AT 1100 POST MORTEM CARE PROVIDED WITH AT BEDSIDE. ALUMINUM CONTAINER TESTER NOTIFIED PT READY FOR FINAL DISCHARGE.
== END 2023-03-27 10:02 ==
LOC: ER 06:55 → MEDS 06:56 → ER 10:51 → MEDS 11:01
PROVIDERS: Physician Assistant; ADMIT Family Medicine
DX: R06.02 Shortness of breath (principal); D46.9 Myelodysplastic syndrome, unspecified; K27.9 Peptic ulcer, site unspecified, unspecified as acute or chronic, without hemorrhage or perforation; E03.9 Hypothyroidism, unspecified; R54 Age-related physical debility; Z51.5 Encounter for palliative care; R62.7 Adult failure to thrive; Z79.899 Other long term (current) drug therapy; Z88.1 Allergy status to other antibiotic agents; Z66 Do not resuscitate
CPT/HCPCS: 71046; 80053; 82803; 83735; 83880; 84145; 84443; 85025; 93005; 93010; 94640; 94664; 99285-25; A9270; J2060